=== PATIENT | male | born 1985 | race Two or more races ===

== ENCOUNTER 2023-01-29 18:56 | Emergency (ER) | payer SELFPAY ==
[2023-01-29 19:42] LABS: APPEARANCE,URINE SLT CLOUDY; BILIRUBIN,URINE NEGATIVE (NEGATIVE); COLOR,URINE YELLOW; GLUCOSE,URINE NEGATIVE (NEGATIVE); KETONES,URINE NEGATIVE (NEGATIVE); LEUKOCYTE ESTERASE,URINE SMALL (NEGATIVE); NITRITE,URINE NEGATIVE (NEGATIVE); OCCULT BLOOD,URINE NEGATIVE (NEGATIVE); PH,URINE 5.5 (5.0-8.0); PROTEIN,URINE NEGATIVE (NEGATIVE); UROBILINOGEN,URINE 0.2 EU/dL (<2.0)
[2023-01-29 20:24] LABS: BACTERIA,URINE 2+ (NEGATIVE); EPITHELIAL CELLS,URINE RARE (NONE-FEW); RBC,URINE 0-2 (0-2/HPF); WBC,URINE 50-60 (0-5/HPF)
[2023-01-29] MEDS ORDERED: Sulfamethoxazole/Trimethoprim 800-160 MG Tab PO STA (20:44)
== END 2023-01-29 20:56 | disposition home or self-care (01) ==
LOC: MW.ED 18:56 → EDBD 18:56 → MW.ED 20:56
DX: N30.00 Acute cystitis without hematuria (principal)
CPT/HCPCS: 81001; 87086; 99283; A9270; 87088; 87186

== ENCOUNTER 2023-02-21 18:11 | Emergency (ER) | payer SELFPAY ==
[2023-02-21 18:48] LABS: APPEARANCE,URINE CLEAR; BILIRUBIN,URINE NEGATIVE (NEGATIVE); COLOR,URINE YELLOW; GLUCOSE,URINE NEGATIVE (NEGATIVE); KETONES,URINE NEGATIVE (NEGATIVE); LEUKOCYTE ESTERASE,URINE NEGATIVE (NEGATIVE); NITRITE,URINE NEGATIVE (NEGATIVE); OCCULT BLOOD,URINE NEGATIVE (NEGATIVE); PROTEIN,URINE NEGATIVE (NEGATIVE); UROBILINOGEN,URINE 0.2 EU/dL (<2.0)
[2023-02-21] MEDS ORDERED: cefTRIAXone 1 GM Vial IM ONE (18:50)
[2023-02-21] MEDS ORDERED: Lidocaine 1% PF 2 ML SDV INJECT STA (19:07)
[2023-02-21] MEDS ORDERED: metroNIDAZOLE 250 MG Tab PO ONE (20:13)
[2023-02-21] MEDS ORDERED: Doxycycline 100 MG Cap PO ONE (20:13)
[2023-02-21 20:56] LABS: C. TRACHOMATIS BY PCR NOT DETECTED; N. GONORRHOEAE BY PCR NOT DETECTED
== END 2023-02-21 20:24 | disposition home or self-care (01) ==
LOC: MW.ED 18:11
DX: N39.0 Urinary tract infection, site not specified (principal)
CPT/HCPCS: 81003; 87491; 87591; 96372; 99283; A9270; J0696; J3490